=== PATIENT | male | born 1955 | race Caucasian/White ===

== ENCOUNTER 2022-01-08 09:16 | Outpatient (CLI) | payer BC, SELFPAY ==
--- NOTE | 2022-01-08 09:15 | MR_ITS ---
[address] [address] Phone:?[phone] Fax:?[phone] Referring Physician Information: Silvestre Jordan M.D. [address] [facility] [address] Phone:?[phone] Fax:?[phone] Patient:Edwin Comer D.O.B:?1955 Sex:?Male Phone:?[phone] [facility] MRN:?[id number] Exam Date:?01/08/2022 ? EXAM: MRI of the RIGHT KNEE, without contrast CLINICAL: Male, 66 years old, with medial right knee pain. INDICATION: Evaluate medial meniscus for tear versus other knee derangement etiology. PRIOR SURGERY: None reported. PLAIN FILMS: None available. COMPARISONS: No prior MRIs available. TECHNICAL: Using a 1.5 Chika MR scanner and a localizing surface coil: 3.0 mm?sagittals: PD, PDFS 3.0 mm?coronals: PD, STIR 3.0 mm?axials: PD, T2FS SEDATION: None. CONTRAST: None. IMPRESSION: 1. Approximately 2.5 cm longitudinal oblique inferior greater than superior surface tear of the posterior horn of the medial meniscus without posterior root tear although with moderate 3 mm peripheral meniscal extrusion. 2. Mild chronic medial compartment chondromalacia without subjacent marrow edema. 3. Approximately 1 cm oblique horizontal tear of superior surface near apex of middle third of the lateral meniscus. 4. Mild lateral compartment chondromalacia without significant subjacent marrow edema. 5. Mild central patellar chondromalacia with slight subjacent marrow edema. 6. No cruciate or collateral ligament injuries. FINDINGS: Knee joint: Effusion: Small towards moderate right knee effusion. Popliteal cyst: None. Loose bodies: None. Subcutaneous and extra-articular soft tissues: Unremarkable. Ligaments: ACL: Intact ACL anteromedial and posterolateral bundles, without sprain or tear. PCL: Intact PCL, without acute or chronic injury. MCL: Intact MCL superficial and deep layers, without injury. FCL: Intact FCL, without injury. Posterolateral corner: No posterolateral corner soft tissue injury. Popliteus, biceps femoris, iliotibial band, popliteofibular ligament and lateral gastrocnemius are intact. Posteromedial corner: No posteromedial corner soft tissue injury. Semimembranosus, pes anserine tendons and posterior oblique ligament are without injury, tendinopathy or bursitis. Extensor mechanism: Patellar tendon: Intact, without tendinopathy. Quadriceps tendon: Intact, without tendinopathy. Retinacula: Medial and lateral retinacula are intact. Fat pads: Unremarkable infrapatellar Hoffa's, quadriceps and prefemoral fat pads. Medial compartment: Medial meniscus: Approximately 2.5 cm longitudinal oblique tear of the medial meniscus posterior horn (sagittal PDFS & PD series 6 & 5, images 26-20). The posterior root tibial attachment is intact. Moderate 3 mm peripheral meniscal extrusion (coronal image 17). Medial femoral condyle: Approximately 1 cm chronic grade IV chondral thinning/defect of the posterior aspect of the central weight-bearing medial femoral condyle accompanied by chronic underlying central osteophyte, without subjacent reactive marrow edema (sagittal PD & PDFS series 5 & 6, image 21). Medial tibial plateau: Chondral thinning of the posteromedial rim of the medial tibial plateau does not appear associated with full-thickness thinning/defect or subjacent marrow edema. Lateral compartment: Lateral meniscus: Approximately 1 cm oblique horizontal tear of the superior surface near apex of middle third of the lateral meniscus (coronal T2FS & PD series 6 & 7, images 20-16; sagittal PDFS series 6, images 9 & 8). Lateral femoral condyle: No chondromalacia or osteochondral abnormality. Lateral tibial plateau: Approximately 20 x 7 mm grade II-III chondromalacia and thinning/irregularity of the junction of the central and mesial aspect of the lateral tibial plateau is not associated with subjacent reactive marrow edema (coronal T2FS series 8, image 22-17). Patellofemoral joint: Patella: Approximately 10 x 10 mm grade II-III chondromalacia of the central median ridge of the patella is accompanied by slight subjacent reactive marrow edema (axial PDFS series 4, images 8-12). Trochlea: Focal inhomogeneity of signal intensity suspect for grade I chondromalacia of the central femoral trochlea without definite surface irregularity or subjacent marrow edema. Proximal tibiofibular joint: Unremarkable, without evidence of ligament sprain injury, joint effusion or adjacent marrow edema. Bones: No stress/occult fractures or other marrow edema/pathology. Neurovascular: Popliteal artery: No demonstrable popliteal artery entrapment or predisposing gastrocnemius variant. No aneurysm or pseudoaneurysm. Popliteal vein: No fusiform or saccular venous aneurysm. Anterior tibial artery: No aberrant high-origin anterior tibial artery. Tibial nerve: No entrapment or distal edema/swelling at the soleal sling. Popliteal nerve: No intrinsic or extrinsic mass or edema/swelling. Common peroneal nerve: Normal to fibular head and neck level included. [facility] Electronically signed on 01/09/2022 8:34:00 AM by Juan Alberto Gipson M.D.
== END 2022-01-08 09:17 | disposition home or self-care (01) ==
PROVIDERS: PCP Family Medicine; Visit Provider Orthopaedic Surgery
DX: M25.561 Pain in right knee (principal); S83.249A Other tear of medial meniscus, current injury, unspecified knee, initial encounter; M23.221 Derangement of posterior horn of medial meniscus due to old tear or injury, right knee; M94.261 Chondromalacia, right knee; M22.41 Chondromalacia patellae, right knee
CPT/HCPCS: 73721

== ENCOUNTER 2022-04-25 10:22 | Day surgery (SDC) | payer MEDICARE, BC, SELFPAY ==
[2022-04-25] VITALS (12 sets, daily range): BP systolic 90–143; BP diastolic 55–99; PULSE 48–60; RESP 16; TEMP 36.3–36.6; O2SAT 95–99; BMI 61.7
[2022-04-25] MEDS: LACTATED RINGERS 1000 ML 1,000 ML 100 ML IV (10:35)
--- NOTE | 2022-04-25 10:45 | SUR.PREOP ---
Patient provided home covid negative results to RN.
--- NOTE | 2022-04-25 11:02 | W.ANESCHARGE ---
Anesthesia Charges Start Date/Time Anesthesia Start Date: 04/25/22 Anesthesia Start Time: 11:14 Stop Date/Time Anesthesia Stop Date: 04/25/22 Anesthesia Stop Time: 12:09
[2022-04-25] MEDS: SODIUM CHLORIDE 0.9 % (FLUSH) 10 ML SYRINGE IVF (11:11)
[2022-04-25] MEDS: CEFAZOLIN 2 GM INJ IVP (11:21)
[2022-04-25] MEDS: BUPIVACAINE 0.25% 30 ML INJECTION (11:56)
--- NOTE | 2022-04-25 11:58 | PM.ORPRC ---
Procedure Note Date of procedure: 04/25/22 Procedure: PREOPERATIVE DIAGNOSIS: Right knee medial and lateral meniscus tear POSTOPERATIVE DIAGNOSIS: Right knee medial and lateral meniscus tear NAME OF OPERATION: Right knee arthroscopic partial medial and lateral meniscectomy SURGEON: Silvestre Jordan MD TRAVELING CONSTRUCTION SUPERINTENDENT: KACY Chung ANESTHESIA: Spinal ESTIMATED BLOOD LOSS: 0 mL COMPLICATIONS: None SPECIMENS: None DRAINS: None PREOPERATIVE ANTIBIOTICS: Ancef 2 gram INDICATIONS: The patient is a 67-year-old with a history of right knee pain. MRI scan is consistent with a medial and lateral meniscus tear. Despite appropriate nonoperative management, including activity modification, antiinflammatories, [id number] pain medication, bracing, physical therapy, and injections they continue to have pain and disability. Operative intervention was offered. The risks, benefits and expected outcomes were discussed in detail. These included but were not limited to: Infection, bleeding, injury to blood vessel or nerve, venous thromboembolism. All questions were answered to their satisfaction. PROCEDURE: Spinal anesthesia was administered. The patient was placed supine on the operating room table. The right lower extremity was prepped and draped in the usual sterile fashion. The limb was exsanguinated with the Marcos bandage. The pneumatic tourniquet was inflated to 300 mmHg. A standard anterolateral portal was established. The arthroscope was introduced. The working portal was established anteromedially. Diagnostic arthroscopy was performed with findings as follows: The suprapatellar pouch is normal. Articular surface on the patella is normal. Articular surface on the trochlea is normal. The medial gutter is normal. The medial compartment shows a focal, linear area of grade 2/3 change on the central weight-bearing portion of the medial femoral condyle measuring 5 mm medial lateral by 20 mm anterior-posterior. The medial meniscus has a tear of the posterior horn, extending into the midbody. This primarily consists of a small radial tear with an unstable inferiorly displaced anteriorly based flap. The notch shows the ACL to be intact. The lateral compartment shows normal articular cartilage on the lateral femoral condyle and lateral tibial plateau. The lateral meniscus has degenerative fraying of the leading edge of the midbody, into the anterior horn. The lateral gutter is normal. The posterior horn of the medial meniscus was debrided to a stable base using a combination of baskets and shaver through both portals. Unstable chondral flaps on the medial femoral condyle, were debrided with the shaver through both portals, taken to a stable base. The leading edge of the lateral meniscus was debrided with the shaver through the anteromedial portal. Arthroscopic instruments were removed, the portal sites were Steri-Stripped closed, the knee was infiltrated with 30 mL of 0.25% Marcaine without epinephrine. A dry dressing was applied, the tourniquet was released. Sponge and needle counts were correct x 2. The patient tolerated the procedure well. There were no apparent complications. They were carefully transferred to the hospital bed and taken to the postanesthesia care unit in satisfactory condition. PLAN: The patient will be discharged to home. They may weightbear as tolerates. Range of motion will be unrestricted. They will follow up in the office next week for a wound check.
--- NOTE | 2022-04-25 12:10 | W.ANESCHARGE ---
Anesthesia Charges Start Date/Time Anesthesia Start Date: 04/25/22 Anesthesia Start Time: 11:14 Stop Date/Time Anesthesia Stop Date: 04/25/22 Anesthesia Stop Time: 12:09
== END 2022-04-25 14:11 | disposition home or self-care (01) ==
PROVIDERS: PCP Family Medicine; Visit Provider Orthopaedic Surgery
PROC: (CPT 29870; principal; 2022-04-25 11:45)
DX: M23.221 Derangement of posterior horn of medial meniscus due to old tear or injury, right knee (principal); M23.241 Derangement of anterior horn of lateral meniscus due to old tear or injury, right knee
CPT/HCPCS: 29880; 01400; J0690; J2250; J2400; J2704; J3010; J3490; J7120

== ENCOUNTER 2022-07-01 11:15 | Outpatient (RCR) | payer MEDICARE, BC, SELFPAY ==
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
--- NOTE | 2022-07-01 12:34 | PT.OPDNX ---
PT [facility] Outpatient Daily Note PT [facility] Outpatient Daily Note Start: 06/10/22 13:00 Freq: Status: Active Protocol: Document 07/01/22 11:16 NEHA (Rec: 07/01/22 12:31 [facility] Laptop) E-signed By Carlyn Orellana, PT PT OP Daily Progress Note Visit Information Note Type Discharge Note Visit Number 4 Insurance Information Recert Due Date 09/08/22 Insurance Name Medicare B,Blue Cross/Blue Shield Insurance Information/Comments MCARE/BCBS Medical Diagnosis RIGHT KNEE OA S/P RIGHT KNEE ARTHROSCOPE RIGHT KNEE MEDIAL AND LATERAL MENISCAL TEAR Treating Diagnosis RIGHT KNEE PAIN RIGHT KNEE WEAKNESS DECREASED BALANCE Referring MD DR. DANNY PICKERING/EDDIE Subjective Pain Comments Preferred Name [facility] Home Exercise Home Exercise Comments REVIEWED HEP AND CORRECTED THE PARAMETERS OF SEVERAL EXERCISES HE HAD THEM INCORRECT. 06/24/22: ADDED SLS BALANCE WORK TO HEP Objective Other/Pertinent Objective GAIT/FUNCTIONAL MOBILITY Single leg stance: Squat: SUPINE KNEE ROM Flexion: 134 Extension: 0 HIP ROM :WNL RLE MMT: Hip flexion: 4/5 Hip abduction: 4/5 Hip extension: 4/5 Knee extension:4+/5 KNEE FLEX: 4+/5 SPECIAL TEST: MELISSA test: (-) FADIR test: (-) JOINT MOBILITY/PALPATION: MIN JOINT LINE DISCOMFORT MEDIAL> LATERAL Functional Test Performed & Score TU.2 TINETTI Patient Instructed in Risks/Benefits Yes Therapeutic Exercise Therapeutic Exercise Minutes (minutes) 35 Therapeutic Exercise: To Restore RECUMBENT BIKE 5MIN Functional Status CALF STRETCH 3 X 30 SEC HAMSTRING STRETCH 3 X 30 SEC QUAD /HIP FLEX STRETCH 3 X 30 SEC SEATED HIP ADD SQUEEZE X 1MIN 3 SEC HOLDS SEATED KNEE EXT W/ADD SQUEEZE X 10 SIT TO STAND W/ADD SQUEEZE X 10 LEG PRESS B X 15 100# WITH ABD BLUE BAND SIDE STEP 40FT X 4 Neuromuscular Re-Ed Neuromuscular Reeducation Minutes ( 10 minutes) Neuromuscular Reeducation Comments LATERAL STEP DOWN 2 X 10 CLOCK 12-9-3-9-12 SLS ON FOAM 3 X 30 SEC SLS ON FOAM WITH PERTURBATION Treatment Minutes Timed Code Treatment Minutes 45 Total Treatment Time 45 Billing Units Neuromuscular Reeducation Units 1 Therapeutic Exercise Units 2 Plan of Care Physical Therapy Goals 1. PATIENT WILL BE ABLE TO STEP INTO AND OUT OF FARM EQUIPMENT W/O PAIN IN 4-6 WEEKS GOAL MET 07/01/22 2. PATIENT WILL DEMONSTRATE 4+ -5/5 STRENGTH TO PERFORM ALL FUNCTIONAL TASKS RELATED TO FARMING (SQUATS, ON HANDS AND KNEES, ETC) GOAL MET 3. PATIENT WILL BE INDEPENDENT WITH HIS HEP AND DEMONSTRATE APPROPRIATE PROGRESSION. GOAL MET Daily Plan of Care Continue per POC Recertification Information Provider Signature Shows Agreement With POC & Medical Necessity Discharge Note Discharge Summary MR. AC HAS BEEN SEEN FOR RLE STRENGTHENING S/P ARTHROSCOPE 04/25/22 FROM -07/01/22 FOR 4 VISITS. HIS FOCUS OF CARE WAS DIRECTED AT QUAD STRENGTHENING, PATELLAR TRACKING, AND FUNCTIONAL DYNAMIC STABILITY. 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 HE HAS MET HIS STG AND WOULD BENEFIT FROM CONTINUED SKILLED PHYSICAL THERAPY; HOWEVER, HIS RESPONSIBILITIES DO NOT LEND THEMSELVES TO CONCENTRATED WORK ON HIS RIGHT LOWER EXTREMITY. TODAY, WE UPDATED HIS HEP TO INCLUDE THE ADDUCTOR AND LATERAL HIP FOCUSSED STRENGTHENING WITH FUNCTIONAL MVMTS WELL DYNAMIC STABILITY DURING STANDING TO IMPROVE HIS FUNCTIONAL DYNAMIC STRENGTH. HE WILL HAVE A DIFFICULT TIME PERFORMING HIS PRESCRIBED PROGRAM CONCURRENTLY WITH HIS FARM RESPONSIBILITIES. WE DISCUSSED MAINTAINING HIS STRETCHING WELL TRYING TO PIECE AND PART THE STRENGTHENING COMPONENT OF HIS HEP. HE IS PLEASED WITH HIS PROGRESS BUT UNDERSTANDS IT WILL TAKE MORE TIME FOR THE STRENGTHENING. HE IS DISCHARGED TODAY TO AN INDEPENDENT AND INDIVIDUALIZED HOME PROGRAM WITH NO SCHEDULED FOLLOW UP WITH THE ORTHO. HE IS ENCOURAGED TO FOLLOW UP SHOULD HE HAVE ANY ISSUES. Date of First Visit for Therapy 06/10/22 Date of Last Visit for Therapy 07/01/22 Discharge Instructions CONTINUE WITH YOUR HEP
== END 2022-08-14 09:57 | disposition home or self-care (01) ==
PROVIDERS: PCP Family Medicine; Visit Provider Physician Assistant
DX: M17.11 Unilateral primary osteoarthritis, right knee (principal); Z98.890 Other specified postprocedural states; Z51.89 Encounter for other specified aftercare
CPT/HCPCS: 97110; 97112; 97161

== ENCOUNTER 2024-08-31 14:56 | Outpatient (RCR) | payer MEDICARE, BC, SELFPAY ==
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
== END 2024-12-29 23:59 | disposition home or self-care (01) ==
PROVIDERS: PCP Family Medicine; Visit Provider Orthopaedic Surgery Sports Medicine
DX: S66.2 Injury of extensor muscle, fascia and tendon of thumb at wrist and hand level (principal); Z51.89 Encounter for other specified aftercare
CPT/HCPCS: L3913

== ENCOUNTER 2025-01-10 14:49 | Outpatient (CLI) | payer MEDICARE, BC, SELFPAY ==
--- NOTE | 2025-01-10 15:30 | MR_ITS ---
EXAM: MRI EXAMINATION OF THE RIGHT KNEE CLINICAL INFORMATION: Right knee pain. History of surgery. Evaluate recurrent medial and lateral meniscal tear. TECHNICAL INFORMATION: Coronal PD and STIR. Axial PD and T2 fat saturation. Sagittal PD and PD fat saturation images acquired. No prior studies for comparison. INTERPRETATION: Bones: No appreciable subchondral edema signal or cystic change. No occult fracture/stress reaction. No evidence for AVN. No other abnormal bone marrow edema pattern is identified. Ligaments and tendons: The medial collateral ligament is intact, without acute sprain or tear. The iliotibial band, fibular collateral ligament, biceps femoris tendon and popliteus tendon all are intact. Generalized increased signal intensity and thickening in keeping with mucoid degeneration of the ACL. The posterior cruciate ligament is intact. Extensor Mechanism: The patellar and quadriceps tendons are intact. The medial and lateral retinacula are intact. Knee Joint: Small knee joint effusion. No discrete popliteal cyst. There is no discrete loose body seen within the joint. Medial Compartment: There is horizontal undersurface tearing involving the mid to posterior body of the medial meniscus as well as continuing through much of the posterior horn. No displaced flap fragment or parameniscal cyst. There are grade 3-4 changes of chondromalacia along the weightbearing surface of the medial femoral condyle. Grade II chondromalacia involves the tibial plateau. Lateral Compartment: There is horizontal tearing identified of the body and continuing throughout the anterior horn of the lateral meniscus. Additional mildly complex tearing involves the far posterior horn and posterior root insertion without root avulsion injury. No displaced flap fragment or parameniscal cyst. Grade II and III chondromalacia involves the mid to medial surface of the lateral tibial plateau. No other significant changes of chondromalacia. Patellofemoral articulation: There grade 2-3 changes of chondromalacia along the inferior two thirds of the midline patella. There is a small segment of grade II to III chondromalacia involving the midline trochlear groove. CONCLUSION: 1. Horizontal tearing involving the body of the medial meniscus continues throughout much of the posterior horn. 2. Horizontal tearing involving the body and anterior horn lateral meniscus. Additional mildly complex tearing of the far posterior horn and posterior root insertion without root avulsion injury. 3. 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 Grade II to III chondromalacia involves the mid to medial surface of the lateral tibial plateau. 4. Grade II to III chondromalacia centered midline of the inferior two thirds of the patella. There is a small segment of grade II-III chondromalacia the midline trochlear groove. 5. Mucoid degeneration of the ACL. [facility]ES Electronically signed on 01/11/2025 10:33:00 AM by Tomasz Nelson M.D.
== END 2025-01-10 14:50 | disposition home or self-care (01) ==
PROVIDERS: PCP Family Medicine; Visit Provider Orthopaedic Surgery
DX: M25.561 Pain in right knee (principal); S83.241A Other tear of medial meniscus, current injury, right knee, initial encounter; S83.281A Other tear of lateral meniscus, current injury, right knee, initial encounter; M22.41 Chondromalacia patellae, right knee
CPT/HCPCS: 73721